=== PATIENT | male | born 1960 | race Hispanic/Latino ===

== ENCOUNTER 2023-01-29 20:57 | Inpatient (IN) | payer SELFPAY ==
[~2023-01-29 20:57] MED LIST: Iopamidol-370 76% 500 ML MDV (1 ML CHARGE) ONE
[2023-01-29 22:41] LABS: ALT (SGPT) 24 U/L (8-55); AST (SGOT) 27 U/L (5-34); Albumin 2.7 g/dL (3.4-4.8); Alkaline Phosphatase 130 U/L (40-110); Anion Gap 15 mmol/L (10-20); BUN (Urea Nitrogen) 18 mg/dL (8.4-25.7); Bilirubin, Total 1.6 mg/dL (0.2-1.2); Calc. Creatinine Clearance 0 mL/min (70-130); Calcium 8.5 mg/dL (7.8-10.44); Carbon Dioxide 21 mmol/L (23-31); Chloride 90 mmol/L (98-107); Estimated GFR 79; Globulin 3.2 g/dL (2.4-3.5); Glucose 321 mg/dL (80-115); Lipase 41 U/L (8-78); Protein, Total 5.9 g/dL (5.8-8.1); Sodium 121 mmol/L (136-145)
[2023-01-29 22:45] LABS: #Eosinphils 0.1 thou/uL (0.0-0.7); #Lymphocytes 1.2 thou/uL (1.20-3.40); #Monocytes 1.1 thou/uL (0.11-0.59); %Basophils 0.4 % (0.0-1.0); %Eosinophils 0.7 % (0.0-10.0); %Lymphocytes 11.6 % (21.0-51.0); %Monocytes 10.2 % (0.0-10.0); Hemoglobin 8.6 g/dL (14.0-18.0); Mean Corpuscular HGB CONC 33.3 g/dL (32.0-36.0); Mean Corpuscular Hemoglobin 27.4 pg (27.0-31.0); Mean Corpuscular Volume 82.3 fl (78.0-98.0); Mean Platelet Volume 7.7 fL (7.4-10.4); Platelet Count 215 10x3/uL (130-400); RBC Distribution Width 17.5 % (11.5-14.5); Red Blood Cell (RBC) Count 3.13 mill/uL (4.70-6.10); White Blood Cell (WBC) Count 10.4 10x3/uL (4.8-10.8)
[2023-01-30] MEDS ORDERED: metroNIDAZOLE 500 MG/100 ML BAG ONE (00:15)
[2023-01-30] MEDS ORDERED: cefTRIAXone (ROCEPHIN) 2 GM VIAL ONE (00:15)
[2023-01-30] MEDS ORDERED: HYDROcodone/Acetaminophen 5/325 mg Tablet PO PRN (00:43)
[2023-01-30] MEDS ORDERED: Ondansetron PF 4 MG/2 ML Vial IVP PRN (00:43)
[2023-01-30] MEDS ORDERED: HumaLOG 300 UNITS/3 ML VIAL SC PRN ×2 (00:53)
[2023-01-30] MEDS ORDERED: Dextrose 5% in Water 1,000 ML IV PRN (00:53)
[2023-01-30] MEDS ORDERED: Dextrose 50% Abboject 50 ML SYRINGE SLOW IVP PRN (00:53)
[2023-01-30 01:49] LABS: SARS-CoV-2 NAA Rapid Test Not Detected (NotDetected)
[2023-01-30 02:25] VITALS: BMI 35.5
[2023-01-30 03:35] LABS: Bilirubin Negative (Negative); Blood, Urine Negative (Negative); Clarity Clear (Clear); Glucose, Urine (Dipstick) Greater than 1000 mg/dL (Negative); Ketone, Urine Negative (Negative); Leukocyte Negative Leu/uL (Negative); Nitrite Negative (Negative); Protein, Urine (Dipstick) Negative (Neg-Trace); Specific Gravity, Urine 1.036 (1.002-1.036); Urobilinogen Normal mg/dL (Less than 2); pH, Urine 5.5 (5.0-9.0)
[2023-01-30] MEDS ORDERED: HumaLOG 300 UNITS/3 ML VIAL ONE (06:22)
[2023-01-30 07:37] LABS: #Eosinphils 0.3 thou/uL (0.0-0.7); #Lymphocytes 1.2 thou/uL (1.20-3.40); #Neutrophils 5.5 thou/uL (1.40-6.50); %Basophils 0.5 % (0.0-1.0); %Eosinophils 3.2 % (0.0-10.0); %Lymphocytes 14.4 % (21.0-51.0); %Monocytes 12.8 % (0.0-10.0); %Neutrophils 69.1 % (42.0-75.0); Hemoglobin 7.8 g/dL (14.0-18.0); Mean Corpuscular HGB CONC 32.4 g/dL (32.0-36.0); Mean Corpuscular Hemoglobin 26.5 pg (27.0-31.0); Mean Corpuscular Volume 81.6 fl (78.0-98.0); Mean Platelet Volume 7.6 fL (7.4-10.4); Platelet Count 192 10x3/uL (130-400); RBC Distribution Width 17.6 % (11.5-14.5); Red Blood Cell (RBC) Count 2.93 mill/uL (4.70-6.10); White Blood Cell (WBC) Count 7.9 10x3/uL (4.8-10.8)
[2023-01-30 07:56] LABS: ALT (SGPT) 26 U/L (8-55); AST (SGOT) 28 U/L (5-34); Albumin 2.5 g/dL (3.4-4.8); Alkaline Phosphatase 117 U/L (40-110); Anion Gap 14 mmol/L (10-20); BUN (Urea Nitrogen) 16 mg/dL (8.4-25.7); Bilirubin, Total 1.1 mg/dL (0.2-1.2); Calc. Creatinine Clearance 125 mL/min (70-130); Calcium 8.2 mg/dL (7.8-10.44); Carbon Dioxide 21 mmol/L (23-31); Chloride 93 mmol/L (98-107); Estimated GFR 96; Globulin 2.9 g/dL (2.4-3.5); Glucose 231 mg/dL (80-115); Potassium 4.7 mmol/L (3.5-5.1); Protein, Total 5.4 g/dL (5.8-8.1); Sodium 123 mmol/L (136-145)
[2023-01-30] MEDS ORDERED: Famotidine/PF 20 mg/2ml Vial SLOW IVP SCH (09:00)
[2023-01-30] MEDS ORDERED: Famotidine/PF 20 mg/2ml Vial ONE (10:18)
[2023-01-30 10:59] LABS: INR-International Normal Ratio 1.3; Prothrombin Time 16.6 sec (12.0-14.7)
[2023-01-30 11:00] LABS: PTT 33.6 sec (22.9-36.1)
[2023-01-30] MEDS ORDERED: Sodium Bicarbonate 2.5 MEQ/5 ML VIAL ONE (13:08)
[2023-01-30] MEDS ORDERED: Lidocaine 1% PF 5 ML VIAL ONE (13:08)
[2023-01-30] MEDS: Albumin 25% 25 GM/100 ML BOT IVPB SCH ×2 (14:51→22:25)
[2023-01-30 15:12] LABS: RBC Count-Automated (BF) 134 /cu.mm; WBC/Nucleated-Auto (BF) 112 /cu.mm
[2023-01-30 15:25] LABS: Fluid, Amylase 13 U/L (Not Available); Fluid, Glucose 281 mg/dL (Not Available); Fluid, LDH 32 U/L (Not Available); Fluid, Protein Less than 1.0 g/dL (Not Available)
[2023-01-30 15:35] LABS: BF Color Yellow; Body Fluid Source Ascites Body Fluid; Clarity Hazy (Clear); Tube # EDTA
[2023-01-30 15:39] LABS: BF Segmented Neutrophils 36 %; Cell Count Non Hematic 34 %; Lymphocytes 30 %
[2023-01-30] MEDS ORDERED: Electrolyte Replacement Protocol 1 EACH FS SCH (15:45)
[2023-01-30] MEDS ORDERED: Electrolyte Replacement Protocol FS PRN (16:00)
[2023-01-30 16:53] LABS: Anion Gap 10 mmol/L (10-20); BUN (Urea Nitrogen) 14 mg/dL (8.4-25.7); Calc. Creatinine Clearance 133 mL/min (70-130); Calcium 8.2 mg/dL (7.8-10.44); Carbon Dioxide 24 mmol/L (23-31); Chloride 93 mmol/L (98-107); Estimated GFR 98; Glucose 247 mg/dL (80-115); Magnesium 1.7 mg/dL (1.6-2.6); Phosphorus 3.1 mg/dL (2.3-4.7); Potassium 4.3 mmol/L (3.5-5.1); Sodium 123 mmol/L (136-145)
[2023-01-30] MEDS: HumaLOG 300 UNITS/3 ML VIAL SC PRN (17:21)
[2023-01-30] MEDS ORDERED: Magnesium 2 GM/50 ML(in water) 2 GM in Premix Bag 1 BAG IVPB SCH (18:30)
[2023-01-30] MEDS ORDERED: Pantoprazole 40 MG VIAL IVP SCH (21:00)
[2023-01-30] MEDS ORDERED: cefTRIAXone\\ROCEPHIN 1 GM in Sodium Chloride 0.9% 100 ML IVPB SCH (21:00)
[2023-01-30] MEDS: Rifaximin 550 MG TAB PO SCH (22:31)
[2023-01-31] MEDS: Albumin 25% 25 GM/100 ML BOT IVPB SCH ×2 (03:21→07:59)
[2023-01-31 04:57] LABS: #Eosinphils 0.1 thou/uL (0.0-0.7); #Lymphocytes 1.2 thou/uL (1.20-3.40); #Monocytes 0.7 thou/uL (0.11-0.59); #Neutrophils 4.4 thou/uL (1.40-6.50); %Basophils 0.6 % (0.0-1.0); %Eosinophils 1.7 % (0.0-10.0); %Monocytes 10.5 % (0.0-10.0); %Neutrophils 68.2 % (42.0-75.0); Hemoglobin 7.9 g/dL (14.0-18.0); Mean Corpuscular HGB CONC 32.8 g/dL (32.0-36.0); Mean Corpuscular Volume 82.2 fl (78.0-98.0); Mean Platelet Volume 7.4 fL (7.4-10.4); Platelet Count 184 10x3/uL (130-400); RBC Distribution Width 17.5 % (11.5-14.5); Red Blood Cell (RBC) Count 2.91 mill/uL (4.70-6.10); White Blood Cell (WBC) Count 6.4 10x3/uL (4.8-10.8)
[2023-01-31 05:22] LABS: ALT (SGPT) 21 U/L (8-55); AST (SGOT) 22 U/L (5-34); Alkaline Phosphatase 112 U/L (40-110); Anion Gap 13 mmol/L (10-20); BUN (Urea Nitrogen) 11 mg/dL (8.4-25.7); Bilirubin, Total 0.9 mg/dL (0.2-1.2); Calc. Creatinine Clearance 136 mL/min (70-130); Calcium 8.2 mg/dL (7.8-10.44); Carbon Dioxide 23 mmol/L (23-31); Chloride 95 mmol/L (98-107); Estimated GFR 99; Globulin 2.5 g/dL (2.4-3.5); Glucose 239 mg/dL (80-115); Magnesium 2.1 mg/dL (1.6-2.6); Phosphorus 2.6 mg/dL (2.3-4.7); Potassium 4.1 mmol/L (3.5-5.1); Protein, Total 5.5 g/dL (5.8-8.1); Sodium 127 mmol/L (136-145)
[2023-01-31] MEDS: HumaLOG 300 UNITS/3 ML VIAL SC PRN ×2 (06:19→11:12)
[2023-01-31] MEDS: Rifaximin 550 MG TAB PO SCH (07:58)
[2023-01-31] MEDS ORDERED: Spironolactone 25 MG TAB PO SCH (08:00)
[2023-01-31] MEDS ORDERED: Furosemide 40 MG/4 ML VIAL SLOW IVP SCH (09:00)
[2023-01-31] MEDS ORDERED: Furosemide 40 MG TAB PO SCH (09:00)
[2023-01-31 11:53] VITALS: BP 102/55; TEMP 98
== END 2023-01-31 15:45 | disposition home or self-care (01) | DRG 433 ==
LOC: ERS 20:57 → ERHOLD 01-30 01:03 → 2NO 01-30 01:20
PROVIDERS: ADMIT Hospitalist; ATTEND Internal Medicine
PROC: 0W9G3ZZ Drainage of Peritoneal Cavity, Percutaneous Approach (ICD-10-PCS; principal; 2023-01-30)
DX: K74.60 Unspecified cirrhosis of liver (principal); E87.1 Hypo-osmolality and hyponatremia; R18.8 Other ascites; E11.9 Type 2 diabetes mellitus without complications; I10 Essential (primary) hypertension; D64.9 Anemia, unspecified; Z79.899 Other long term (current) drug therapy; Z20.822 Contact with and (suspected) exposure to COVID-19
CPT/HCPCS: 36415; 36416; 49083; 71045; 74177; 80053; 81003; 82042; 82150; 82945; 83605; 83615; 83690; 83735; 84100; 84157; 85025; 85060; 85610; 85730; 87040; 87070; 87086; 87205; 89051; 93005; J0696; J1815; J1940; J3475; J3490; P9047; Q9967; S0028

== ENCOUNTER 2023-02-13 18:49 | Emergency (ER) | payer SELFPAY ==
[2023-02-13 20:17] LABS: #Eosinphils 0.2 thou/uL (0.0-0.7); #Neutrophils 3.8 thou/uL (1.40-6.50); %Basophils 0.6 % (0.0-1.0); %Eosinophils 3.1 % (0.0-10.0); %Lymphocytes 23.8 % (21.0-51.0); %Monocytes 14.4 % (0.0-10.0); %Neutrophils 57.7 % (42.0-75.0); Hemoglobin 7.6 g/dL (14.0-18.0); Mean Corpuscular Hemoglobin 23.6 pg (27.0-31.0); Mean Corpuscular Volume 76.1 fl (78.0-98.0); Mean Platelet Volume 9.2 fL (7.4-10.4); Platelet Count 293 10x3/uL (130-400); RBC Distribution Width 17.5 % (11.5-14.5); Red Blood Cell (RBC) Count 3.22 mill/uL (4.70-6.10); White Blood Cell (WBC) Count 6.7 10x3/uL (4.8-10.8)
[2023-02-13 20:32] LABS: ALT (SGPT) 14 U/L (8-55); AST (SGOT) 25 U/L (5-34); Albumin 2.6 g/dL (3.4-4.8); Alkaline Phosphatase 112 U/L (40-110); Anion Gap 13 mmol/L (10-20); BUN (Urea Nitrogen) 12 mg/dL (8.4-25.7); CRP (Inflammatory) 1.05 mg/dL (= or < 0.5); Calc. Creatinine Clearance 0 mL/min (70-130); Calcium 8.3 mg/dL (7.8-10.44); Carbon Dioxide 30 mmol/L (23-31); Chloride 91 mmol/L (98-107); Estimated GFR 82; Globulin 3.2 g/dL (2.4-3.5); Glucose 208 mg/dL (80-115); Potassium 4.1 mmol/L (3.5-5.1); Protein, Total 5.8 g/dL (5.8-8.1); Sodium 130 mmol/L (136-145)
[2023-02-13] MEDS ORDERED: Lidocaine 1% PF 5 ML VIAL ONE (21:41)
[2023-02-13 23:03] LABS: Lactic Acid 1.8 mmol/L (0.5-2.2)
[2023-02-13 23:51] LABS: RBC Count-Automated (BF) 222 /cu.mm; WBC/Nucleated-Auto (BF) 175 /cu.mm
[2023-02-13 23:52] LABS: BF Color Yellow; Body Fluid Source Peritoneal Fluid; Clarity Cloudy/Turbid (Clear); Tube # 1
[2023-02-14 00:29] LABS: BF Segmented Neutrophils 11 %; Cell Count Non Hematic 38 %; Lymphocytes 51 %
== END 2023-02-13 23:00 | disposition home or self-care (01) ==
LOC: ERS 18:49
DX: R18.8 Other ascites (principal); K74.60 Unspecified cirrhosis of liver; K42.9 Umbilical hernia without obstruction or gangrene; E11.9 Type 2 diabetes mellitus without complications; Z79.84 Long term (current) use of oral hypoglycemic drugs
CPT/HCPCS: 36415; 80053; 82042; 83605; 83690; 84157; 85025; 85060; 86140; 87070; 87205; 89051; 93005

== ENCOUNTER 2023-05-13 13:28 | Emergency (ER) | payer OTHER, SELFPAY ==
[2023-05-13 14:07] LABS: #Eosinphils 0.4 thou/uL (0.0-0.7); #Monocytes 0.6 thou/uL (0.11-0.59); #Neutrophils 2.6 thou/uL (1.40-6.50); %Basophils 0.6 % (0.0-1.0); %Eosinophils 7.7 % (0.0-10.0); %Lymphocytes 26.3 % (21.0-51.0); %Monocytes 12.5 % (0.0-10.0); %Neutrophils 52.7 % (42.0-75.0); Hematocrit 33.4 % (42.0-52.0); Hemoglobin 10.8 g/dL (14.0-18.0); Mean Corpuscular HGB CONC 32.3 g/dL (32.0-36.0); Mean Corpuscular Hemoglobin 27.3 pg (27.0-31.0); Mean Corpuscular Volume 84.3 fl (78.0-98.0); Platelet Count 156 10x3/uL (130-400); RBC Distribution Width 17.6 % (11.5-14.5); Red Blood Cell (RBC) Count 3.96 mill/uL (4.70-6.10)
[2023-05-13 14:27] LABS: ALT (SGPT) 14 U/L (8-55); AST (SGOT) 36 U/L (5-34); Albumin 2.8 g/dL (3.4-4.8); Alkaline Phosphatase 95 U/L (40-110); Anion Gap 12 mmol/L (10-20); BUN (Urea Nitrogen) 4 mg/dL (8.4-25.7); Bilirubin, Total 0.7 mg/dL (0.2-1.2); Calc. Creatinine Clearance 0 mL/min (70-130); Calcium 8.5 mg/dL (7.8-10.44); Carbon Dioxide 23 mmol/L (23-31); Chloride 101 mmol/L (98-107); Estimated GFR 104; Globulin 3.2 g/dL (2.4-3.5); Glucose 141 mg/dL (80-115); Lipase 23 U/L (8-78); Potassium 4.3 mmol/L (3.5-5.1); Sodium 132 mmol/L (136-145)
[2023-05-13 14:44] LABS: INR-International Normal Ratio 1.3; PTT 42.2 sec (22.9-36.1); Prothrombin Time 16.7 sec (12.0-14.7)
== END 2023-05-13 16:31 | disposition home or self-care (01) ==
LOC: ERS 13:28
DX: R18.8 Other ascites (principal); K74.60 Unspecified cirrhosis of liver; E11.9 Type 2 diabetes mellitus without complications; E78.5 Hyperlipidemia, unspecified; I10 Essential (primary) hypertension
CPT/HCPCS: 36415; 80053; 82140; 83605; 83690; 85025; 85610; 85730; 99284